=== PATIENT | male | born 1940 ===

== ENCOUNTER 2018-04-24 16:46 | Emergency (ER) | payer OTHER ==
[2018-04-24 17:39] VITALS: BP 165/52; PULSE 57; RESP 18; TEMP 97.9; O2SAT 97; BMI 28.7
--- NOTE | 2018-04-24 17:55 | ED PDOC ---
Arrival/HPI - General Chief Complaint: Suture/Staple Removal Time Seen by Provider: 04/24/18 16:48 Historian: Patient - History of Present Illness Narrative History of Present Illness (Text): 04/24/18 18:10 77yr old male presents today for suture removal. Pt states on 03/28/18 he had a cyst removed from the anterior aspect of the right ankle. pt states he was supposed to have suture removed 10 days later but presents today for removed. pt denies fever/chills. denies pain. no other complaints. Past Medical History - Provider Review Nursing Documentation Reviewed: Yes - Travel History Have you recently traveled outside [place] w/in the past 3 mons?: No - Infectious Disease Hx of Infectious Diseases: None - Tetanus Immunization Tetanus Immunization: Unknown - Cardiac Hx Cardiac Disorders: Yes Hx Hypertension: Yes - Pulmonary Hx Respiratory Disorders: No - Neurological Hx Neurological Disorder: No - HEENT Hx HEENT Disorder: No - Renal Hx Renal Disorder: No - Endocrine/Metabolic Hx Endocrine Disorders: No - Hematological/Oncological Hx Blood Disorders: No - Integumentary Hx Dermatological Disorder: No - Musculoskeletal/Rheumatological Hx Musculoskeletal Disorders: No - Gastrointestinal Hx Gastrointestinal Disorders: No - Genitourinary/Gynecological Hx Genitourinary Disorders: No - Psychiatric Hx Psychophysiologic Disorder: No Hx Substance Use: No Family/Social History - Physician Review Nursing Documentation Reviewed: Yes Family/Social History: Unknown Family HX Smoking Status: Never Smoked Hx Alcohol Use: Yes Frequency of alcohol use: Socially Hx Substance Use: No Allergies/Home Meds Allergies/Adverse Reactions: Allergies No Known Allergies Allergy (Verified 04/24/18 17:22) Home Medications: Home Meds Medication Instructions Recorded Confirmed Aspirin [Lo-Dose Aspirin EC] 81 mg PO DAILY 04/24/18 04/24/18 Atenolol 100 mg PO DAILY 04/24/18 04/24/18 Review of Systems - Review of Systems Constitutional: absent: Fatigue, Fevers Respiratory: absent: SOB, Cough Cardiovascular: absent: Chest Pain, Palpitations Gastrointestinal: absent: Abdominal Pain, Nausea, Vomiting Genitourinary Male: absent: Dysuria Musculoskeletal: absent: Back Pain, Neck Pain Skin: Other (surgical wound with [address] ) Neurological: absent: Headache, Dizziness Psychiatric: absent: Anxiety, Depression Physical Exam Vital Signs Reviewed: Yes Vital Signs Temp Pulse Resp BP Pulse Ox 04/24/18 17:24 97.9 F 57 L 18 165/52 H 97 Temperature: Afebrile Blood Pressure: Normal Pulse: Regular Respiratory Rate: Normal Appearance: Positive for: Well-Appearing, Non-Toxic, Comfortable Pain Distress: None Mental Status: Positive for: Alert and Oriented X 3 - Systems Exam Head: Present: Atraumatic Respiratory/Chest: Present: Clear to Auscultation Cardiovascular: Present: Regular Rate and Rhythm Upper Extremity: Present: Normal Inspection Lower Extremity: Present: NORMAL PULSES, Normal ROM, Neurovascularly Intact, Capillary Refill < 2 s, Other (there is a surgical incision with [address] over anterior right ankle with wound dehisence. no purulent discharge. ). No: CALF TENDERNESS, Tenderness, Swelling Neurological: Present: GCS=15 Skin: Present: Warm, Dry, Normal Color. No: Rashes Psychiatric: Present: Alert, Oriented x 3 Medical Decision Making ED Course and Treatment: 04/24/18 18:24 Patient is nontoxic well-appearing in no distress. Vital signs are stable. Suture removal: 7 sutures removed, wound dehiscence present. serous discharge. will start patient on abx and f/u with wound care center. I advised the patient to keep the wound clean and dry apply bacitracin twice daily. advised f/u with wound care center. advised taken abx as prescribed and return if symptoms worsen persist or if new symptoms develop Patient verbalizes understanding of discharge instructions and need for immediate followup. all aspects of this case were discussed the attending of record. Impression: suture removal, wound infection bactrim 1 tablet twice daily x 7 days keflex; 1 capsule 4 times daily x 7 days. follow up with the wound care center within the next 2 days. follow up with the surgeon within the next 2 days. return if symptoms worsen,persist or if new symptoms develop. Disposition/Present on Arrival - Present on Arrival Any Indicators Present on Arrival: No History of DVT/PE: No History of Uncontrolled Diabetes: No Urinary Catheter: No History of Decub. Ulcer: No History Surgical Site Infection Following: None - Disposition Have Diagnosis and Disposition been Completed?: Yes Diagnosis: Encounter for removal of sutures, Wound infection Disposition: HOME/ ROUTINE Disposition Time: 17:52 Patient Plan: Discharge Condition: GOOD Discharge Instructions (ExitCare): Stitches Removal, Wound Infection Additional Instructions: bactrim 1 tablet twice daily x 7 days keflex; 1 capsule 4 times daily x 7 days. follow up with the wound care center within the next 2 days. follow up with the surgeon within the next 2 days. return if symptoms worsen,persist or if new symptoms develop. Prescriptions: Cephalexin [Keflex] 500 mg PO QID #28 capsule Sulfamethoxazole/Trimethoprim [Bactrim DS 800 mg-160 mg] 1 tab PO BID #14 tab Referrals: Center, Wound Care [Other] - Follow up with primary Carolynn White MD [Staff Provider] - Follow up with primary Clementine Drake MD [Medical Doctor] - Follow up with primary [facility] [Outside] - Follow up with primary
== END 2018-04-24 18:37 | disposition home or self-care (01) ==
LOC: EDBD → ED 16:46
DX: Z48.02 Encounter for removal of sutures (principal); L08.9 Local infection of the skin and subcutaneous tissue, unspecified; I10 Essential (primary) hypertension